=== PATIENT | female | born 1990 | race Caucasian/White ===

== ENCOUNTER 2023-06-10 02:43 | Emergency (ER) | payer SELFPAY ==
[~2023-06-10] VITALS: Ht 170.2 cm; Wt 78.0 kg
[2023-06-10 02:50] VITALS: BP 156/91; PULSE 91; RESP 14; TEMP 97.7; O2SAT 98
[2023-06-10] MEDS ORDERED: DOXY100C5 MT (02:51)
[2023-06-10] MEDS ORDERED: CEFTRIAXONE SODIUM 500MG VIAL IM ONE (03:15)
[2023-06-10] MEDS ORDERED: AZITHROMYCIN 500 MG TABLET PO ONE (03:15)
[2023-06-12 08:10] LABS: CHLAMYDIA TRACHOMATIS NAA Negative (Negative); NEISSERIA GONORRHOEAE NAA Negative (Negative)
== END 2023-06-10 03:29 | disposition home or self-care (01) ==
LOC: ER 02:55
DX: O98.311 Other infections with a predominantly sexual mode of transmission complicating pregnancy, first trimester (principal)
CPT/HCPCS: 87491; 87591; 81025; 96372; 99283; J0696; Z7610 ×2